=== PATIENT | female | born 1995 | race Caucasian/White ===

== ENCOUNTER 2017-01-14 13:39 | Emergency (ER) | payer OTHER ==
[~2017-01-14] VITALS: Ht 167.6 cm; Wt 68.2 kg
[2017-01-14 13:51] VITALS: BP 101/57
[2017-01-14] MEDS ORDERED: SUBO8MIS SL (13:55)
[2017-01-14] MEDS ORDERED: BUSP30TA PO (13:55)
[2017-01-14] MEDS ORDERED: QUET1TAB8 PO (13:55)
[2017-01-14] MEDS ORDERED: NICODIS TD (13:55)
[2017-01-14] MEDS ORDERED: ACETAMINOPHEN TAB 650MG DOSE (2X325MG) PO ONE (16:30)
[2017-01-14] MEDS ORDERED: IBUPROFEN 600 MG TAB PO ONE (16:30)
[2017-01-14] MEDS ORDERED: TYLE325T5 PO (16:33)
[2017-01-14] MEDS ORDERED: IBUP-1022 PO (16:33)
== END 2017-01-14 16:38 | disposition home or self-care (01) ==
LOC: M ED 13:39
DX: G43.909 Migraine, unspecified, not intractable, without status migrainosus (principal); F17.200 Nicotine dependence, unspecified, uncomplicated; Z79.899 Other long term (current) drug therapy

== ENCOUNTER → 2017-01-19 | Outpatient (CLI) | payer OTHER ==
[~2017-01-19] MED LIST: BUSP30TA PO; IBUP-1022 PO; NICODIS TD; QUET1TAB8 PO; SUBO8MIS SL; TYLE325T5 PO
[2017-01-19 12:50] LABS: BASO % 0.3 % (0.0-1.0); EOS # 0.1 10^3/uL (0.0-0.50); LYMPH # 1.3 10^3/uL (1.5-6.5); LYMPH % 41.3 % (24.0-44.0); MEAN CORPUSCULAR HEMOGLOBIN 29.7 pg (27.0-33.0); MEAN CORPUSCULAR HGB CONC 32.8 g/dl (32.0-36.5); MEAN CORPUSCULAR VOLUME 90.3 fl (80.0-96.0); MONO # 0.4 10^3/uL (0.0-0.8); MONO % 11.6 % (0.0-5.0); NEUTROPHILS # 1.3 10^3/uL (1.8-7.7); NEUTROPHILS % 43.8 % (36.0-66.0); PLATELET COUNT, AUTOMATED 157 10^3/uL (150-450); RED CELL DISTRIBUTION WIDTH 13.5 % (11.5-14.5)
[2017-01-19 13:21] LABS: ALBUMIN 3.6 GM/DL (3.2-5.2); ALBUMIN/GLOBULIN RATIO 1.29 (1.00-1.93); ALKALINE PHOSPHATASE 66 U/L (45-117); ALT/SGPT 34 U/L (12-78); ANION GAP 7 MEQ/L (8-16); AST/SGOT 25 U/L (7-37); BILIRUBIN,TOTAL 0.3 MG/DL (0.2-1.0); BLOOD UREA NITROGEN 16 MG/DL (7-18); CALCIUM LEVEL 9.2 MG/DL (8.5-10.1); CARBON DIOXIDE LEVEL 27 MEQ/L (21-32); CHLORIDE LEVEL 106 MEQ/L (98-107); CREATININE FOR GFR 0.62 MG/DL (0.55-1.02); GLOMERULAR FILTRATION RATE > 60.0 (>60); GLUCOSE, FASTING 76 MG/DL (70-105); POTASSIUM SERUM 4.4 MEQ/L (3.5-5.1); SODIUM LEVEL 140 MEQ/L (136-145); TOTAL PROTEIN 6.4 GM/DL (6.4-8.2)
== END ==
LOC: M LAB 11:50
PROVIDERS: ATTEND Nurse Practitioner Adult Health
DX: Z79.899 Other long term (current) drug therapy (principal)

== ENCOUNTER 2017-01-28 11:18 | Emergency (ER) | payer OTHER ==
[~2017-01-28] VITALS: Ht 170.2 cm; Wt 83.2 kg
[2017-01-28 13:04] VITALS: BP 97/56
== END 2017-01-28 13:06 | disposition home or self-care (01) ==
LOC: M ED 11:18
DX: S09.90XA Unspecified injury of head, initial encounter (principal); X58.XXXA Exposure to other specified factors, initial encounter; Y92.099 Unspecified place in other non-institutional residence as the place of occurrence of the external cause; Y93.9 Activity, unspecified; Y99.9 Unspecified external cause status; F60.3 Borderline personality disorder; F90.9 Attention-deficit hyperactivity disorder, unspecified type; F41.9 Anxiety disorder, unspecified; F32.9 Major depressive disorder, single episode, unspecified; Z79.899 Other long term (current) drug therapy

== ENCOUNTER → 2017-02-24 | Outpatient (REF) | payer OTHER | LOC: M SFHCWAGY 15:15 | DX: Z11.4 Encounter for screening for human immunodeficiency virus [HIV] (principal); Z11.3 Encounter for screening for infections with a predominantly sexual mode of transmission ==

== ENCOUNTER → 2017-04-09 | Outpatient (REF) | payer OTHER ==
[2017-04-09 16:12] LABS: INFLUENZA A AMPLIFICATION NEGATIVE (NEGATIVE); INFLUENZA B AMPLIFICATION NEGATIVE (NEGATIVE)
== END ==
LOC: M SFHCLERA 12:32
DX: J02.9 Acute pharyngitis, unspecified (principal); R51 Headache

== ENCOUNTER → 2017-04-11 | Outpatient (REF) | payer OTHER | LOC: M SFHCLERA 13:53 | DX: J02.9 Acute pharyngitis, unspecified (principal) ==

== ENCOUNTER → 2017-04-27 | Outpatient (REF) | payer OTHER | LOC: M SFHCLERA 19:14 | DX: L98.9 Disorder of the skin and subcutaneous tissue, unspecified (principal); L72.9 Follicular cyst of the skin and subcutaneous tissue, unspecified ==

== ENCOUNTER → 2017-04-29 | Outpatient (CLI) | payer OTHER ==
[2017-04-29 14:23] LABS: COMPLEMENT C3 88.5 MG/DL (90-180); COMPLEMENT C4 22.6 MG/DL (10-40); IMMUNOGLOBULIN G 977 MG/DL (681-1648); IMMUNOGLOBULIN M 73.9 MG/DL (40-230)
[2017-04-29 15:04] LABS: IMMUNOGLOBULIN E 16.4 IU/ML (<100)
== END ==
LOC: M LAB 12:59
DX: L50.8 Other urticaria (principal); J30.1 Allergic rhinitis due to pollen; J30.81 Allergic rhinitis due to animal (cat) (dog) hair and dander
CPT/HCPCS: 82785

== ENCOUNTER 2017-05-05 14:00 | Emergency (ER) | payer OTHER ==
[2017-05-05] MEDS: METHYLNALTREXONE BROMIDE 12 MG/0.6 ML VIAL (RELISTOR) SC (16:38)
[2017-05-05] MEDS: FLEET OIL RETENTION ENEMA PR (17:37)
[2017-05-05] MEDS: MAGNESIUM CITRATE 300 ML BTL PO (19:37)
== END 2017-05-05 19:44 | disposition home or self-care (01) ==
LOC: M ED 14:00
DX: K59.03 Drug induced constipation (principal); F41.9 Anxiety disorder, unspecified; F90.9 Attention-deficit hyperactivity disorder, unspecified type; F60.3 Borderline personality disorder; F19.10 Other psychoactive substance abuse, uncomplicated; Z79.899 Other long term (current) drug therapy
CPT/HCPCS: 74021

== ENCOUNTER → 2017-05-09 | Outpatient (REF) | payer OTHER ==
[2017-05-09 16:16] LABS: CHLAMYDIA DNA AMPLIFICATION NEGATIVE (NEGATIVE); GC DNA AMPLIFICATION NEGATIVE (NEGATIVE)
== END ==
LOC: M SFHCWAGY 13:35
DX: N89.8 Other specified noninflammatory disorders of vagina (principal); Z11.3 Encounter for screening for infections with a predominantly sexual mode of transmission

== ENCOUNTER 2017-06-01 10:10 | Emergency (ER) | payer OTHER ==
[2017-06-01] MEDS: METHYLNALTREXONE BROMIDE 12 MG/0.6 ML VIAL (RELISTOR) SC (12:45)
[2017-06-01] MEDS: FLEET OIL RETENTION ENEMA PR (12:45)
[2017-06-01] MEDS: MAGNESIUM CITRATE 300 ML BTL PO (12:53)
== END 2017-06-01 13:47 | disposition home or self-care (01) ==
LOC: M ED 10:10
DX: K59.03 Drug induced constipation (principal); F19.10 Other psychoactive substance abuse, uncomplicated; F60.3 Borderline personality disorder; F90.9 Attention-deficit hyperactivity disorder, unspecified type; J30.2 Other seasonal allergic rhinitis; Z87.891 Personal history of nicotine dependence; Z79.899 Other long term (current) drug therapy
CPT/HCPCS: 74019

== ENCOUNTER → 2017-06-17 | Outpatient (CLI) | payer OTHER ==
[2017-06-17 10:29] LABS: FREE T4 0.84 NG/DL (0.76-1.46)
== END ==
LOC: M LAB 09:16
DX: K59.00 Constipation, unspecified (principal)
CPT/HCPCS: 84443

== ENCOUNTER → 2017-06-25 | Outpatient (REF) | payer OTHER | LOC: M SFHCLERA 09:49 | DX: J02.9 Acute pharyngitis, unspecified (principal) ==

== ENCOUNTER 2017-06-30 08:34 | Day surgery (SDC) | payer OTHER ==
[2017-06-30] MEDS: NS 1,000 ML IV (09:00)
[2017-06-30] MEDS ORDERED: PROPOFOL 200 MG/20 ML VIAL As Ordered (09:09)
[2017-06-30] MEDS ORDERED: LIDOCAINE 2% INJ 100 MG/5 ML SDV (FOR ANES.) As Ordered (09:40)
== END 2017-06-30 10:30 | disposition home or self-care (01) ==
LOC: M OPP 08:34
DX: R10.84 Generalized abdominal pain (principal); K92.1 Melena; K59.00 Constipation, unspecified; K64.8 Other hemorrhoids; Z86.19 Personal history of other infectious and parasitic diseases; M54.5 Low back pain; F41.9 Anxiety disorder, unspecified; F32.9 Major depressive disorder, single episode, unspecified; F12.21 Cannabis dependence, in remission; F14.21 Cocaine dependence, in remission; F19.21 Other psychoactive substance dependence, in remission; Z79.899 Other long term (current) drug therapy
CPT/HCPCS: 45378

== ENCOUNTER 2017-07-25 12:43 | Emergency (ER) | payer OTHER ==
[2017-07-25] MEDS: METHYLNALTREXONE BROMIDE 12 MG/0.6 ML VIAL (RELISTOR) SC (14:48)
== END 2017-07-25 15:43 | disposition home or self-care (01) ==
LOC: M ED 12:43
DX: K59.03 Drug induced constipation (principal); T40.2X5A Adverse effect of other opioids, initial encounter; F41.9 Anxiety disorder, unspecified; F32.9 Major depressive disorder, single episode, unspecified; F60.3 Borderline personality disorder; F90.9 Attention-deficit hyperactivity disorder, unspecified type; J30.2 Other seasonal allergic rhinitis; F17.200 Nicotine dependence, unspecified, uncomplicated; Z79.899 Other long term (current) drug therapy; Z79.891 Long term (current) use of opiate analgesic
CPT/HCPCS: 74021

== ENCOUNTER → 2017-08-01 | Outpatient (REF) | payer OTHER | LOC: M SFHCPLAZ 11:26 | DX: B19.21 Unspecified viral hepatitis C with hepatic coma (principal); R63.4 Abnormal weight loss ==

== ENCOUNTER → 2017-08-02 | Outpatient (REF) | payer OTHER ==
[2017-08-02 13:19] LABS: BASO % 0.3 % (0.0-1.0); EOS # 0.1 10^3/uL (0.0-0.50); EOS % 3.8 % (0.0-3.0); HEMOGLOBIN 11.5 g/dl (12.0-15.5); LYMPH # 1.2 10^3/uL (1.5-6.5); LYMPH % 36.6 % (24.0-44.0); MEAN CORPUSCULAR HEMOGLOBIN 30.3 pg (27.0-33.0); MEAN CORPUSCULAR HGB CONC 32.9 g/dl (32.0-36.5); MEAN CORPUSCULAR VOLUME 92.3 fl (80.0-96.0); MONO # 0.2 10^3/uL (0.0-0.8); MONO % 7.3 % (0.0-5.0); NEUTROPHILS # 1.7 10^3/uL (1.8-7.7); PLATELET COUNT, AUTOMATED 126 10^3/uL (150-450); RED BLOOD COUNT 3.79 10^6/uL (4.00-5.40); RED CELL DISTRIBUTION WIDTH 12.7 % (11.5-14.5); WHITE BLOOD COUNT 3.2 10^3/uL (4.0-10.0)
[2017-08-02 13:46] LABS: ALBUMIN 3.8 GM/DL (3.2-5.2); ALBUMIN/GLOBULIN RATIO 1.41 (1.00-1.93); ALKALINE PHOSPHATASE 67 U/L (45-117); ALT/SGPT 24 U/L (12-78); ANION GAP 8 MEQ/L (8-16); AST/SGOT 16 U/L (7-37); BILIRUBIN,TOTAL 0.4 MG/DL (0.2-1.0); BLOOD UREA NITROGEN 7 MG/DL (7-18); CALCIUM LEVEL 8.8 MG/DL (8.5-10.1); CARBON DIOXIDE LEVEL 26 MEQ/L (21-32); CHLORIDE LEVEL 109 MEQ/L (98-107); CREATININE FOR GFR 0.81 MG/DL (0.55-1.30); FREE T4 0.84 NG/DL (0.76-1.46); GLOMERULAR FILTRATION RATE > 60.0 (>60); GLUCOSE, FASTING 85 MG/DL (70-100); SODIUM LEVEL 143 MEQ/L (136-145); TOTAL PROTEIN 6.5 GM/DL (6.4-8.2)
[2017-08-03 08:06] LABS: HEPATITIS A IgG TOTAL Negative (Negative)
[2017-08-03 09:28] LABS: HEPATITIS B SURFACE ANTIBODY POSITIVE (POSITIVE)
[2017-08-05 14:16] LABS: HEPATITIS C QUANTITATION HCV Not Detected IU/mL (.)
== END ==
LOC: M SFHCPLAZ 09:48
DX: B19.21 Unspecified viral hepatitis C with hepatic coma (principal); R63.4 Abnormal weight loss

== ENCOUNTER → 2017-08-19 | Outpatient (CLI) | payer OTHER ==
[2017-08-19 15:38] LABS: BASO % 0.9 % (0.0-1.0); EOS # 0.1 10^3/uL (0.0-0.50); EOS % 3.2 % (0.0-3.0); HEMATOCRIT 35.8 % (36.0-47.0); HEMOGLOBIN 12.2 g/dl (12.0-15.5); IMMATURE GRANULOCYTE % 0.2 % (0-3.0); LYMPH # 1.5 10^3/uL (1.5-6.5); LYMPH % 34.7 % (24.0-44.0); MEAN CORPUSCULAR HEMOGLOBIN 30.7 pg (27.0-33.0); MEAN CORPUSCULAR HGB CONC 34.1 g/dl (32.0-36.5); MEAN CORPUSCULAR VOLUME 89.9 fl (80.0-96.0); MONO # 0.4 10^3/uL (0.0-0.8); MONO % 7.9 % (0.0-5.0); NEUTROPHILS # 2.3 10^3/uL (1.8-7.7); NEUTROPHILS % 53.1 % (36.0-66.0); PLATELET COUNT, AUTOMATED 171 10^3/uL (150-450); RED BLOOD COUNT 3.98 10^6/uL (4.00-5.40); RED CELL DISTRIBUTION WIDTH 12.4 % (11.5-14.5); WHITE BLOOD COUNT 4.4 10^3/uL (4.0-10.0)
[2017-08-19 15:40] LABS: APPEARANCE, URINE CLEAR (CLEAR); BACTERIA, URINE AUTO 2+ (NEGATIVE); BILIRUBIN, URINE AUTO NEGATIVE (NEGATIVE); BLOOD, URINE BLOOD NEGATIVE (NEGATIVE); COLOR, URINE STRAW (YELLOW); GLUCOSE, URINE (UA) AUTO NEGATIVE (NEGATIVE); KETONE, URINE AUTO NEGATIVE (NEGATIVE); LEUKOCYTE ESTERASE, URINE AUTO NEGATIVE (NEGATIVE); NITRITE, URINE AUTO NEGATIVE (NEGATIVE); PROTEIN, URINE AUTO NEGATIVE (NEGATIVE); RBC, URINE AUTO 2 /HPF (0-3); SPECIFIC GRAVITY URINE AUTO 1.003 (1.002-1.035); SQUAMOUS EPITHELIAL CELL UR AU 2 /HPF (0-6); UROBILINOGEN, URINE AUTO 0.2 mg/dL (0.0-2.0); WBC, URINE AUTO 0 /HPF (0-3)
[2017-08-19 15:58] LABS: ALBUMIN 4.2 GM/DL (3.2-5.2); ALBUMIN/GLOBULIN RATIO 1.35 (1.00-1.93); ALKALINE PHOSPHATASE 72 U/L (45-117); ALT/SGPT 25 U/L (12-78); ANION GAP 7 MEQ/L (8-16); AST/SGOT 16 U/L (7-37); BILIRUBIN,TOTAL 0.4 MG/DL (0.2-1.0); BLOOD UREA NITROGEN 9 MG/DL (7-18); CALCIUM LEVEL 9.5 MG/DL (8.5-10.1); CARBON DIOXIDE LEVEL 29 MEQ/L (21-32); CHLORIDE LEVEL 105 MEQ/L (98-107); CREATININE FOR GFR 0.82 MG/DL (0.55-1.30); GLOMERULAR FILTRATION RATE > 60.0 (>60); GLUCOSE, FASTING 74 MG/DL (70-100); POTASSIUM SERUM 4.1 MEQ/L (3.5-5.1); SODIUM LEVEL 141 MEQ/L (136-145); TOTAL PROTEIN 7.3 GM/DL (6.4-8.2)
[2017-08-21 09:18] LABS: HEPATITIS A IgG TOTAL Negative (Negative)
[2017-08-22 10:22] LABS: HEPATITIS B SURFACE ANTIBODY POSITIVE (POSITIVE)
[2017-08-22 10:32] LABS: HEPATITIS B SURFACE ANTIGEN NEGATIVE (NEGATIVE)
[2017-08-22 11:12] LABS: HEPATITIS C VIRUS ABY INDEX > 11.0 INDEX (<0.8)
== END ==
LOC: M LAB 14:11
DX: Z51.81 Encounter for therapeutic drug level monitoring (principal); Z79.891 Long term (current) use of opiate analgesic; F60.3 Borderline personality disorder
CPT/HCPCS: 80053

== ENCOUNTER → 2017-09-02 | Outpatient (CLI) | payer OTHER ==
[2017-09-02 15:19] LABS: HIV 1&2 SCREEN CENTAUR NEGATIVE (NEGATIVE)
[2017-09-06 10:25] LABS: HEPATITIS C QUANTITATION HCV Not Detected IU/mL (.)
== END ==
LOC: M LAB 12:04
DX: B19.21 Unspecified viral hepatitis C with hepatic coma (principal)
CPT/HCPCS: 87522

== ENCOUNTER → 2017-09-06 | Outpatient (REF) ==
[2017-09-07 11:02] LABS: RUBELLA IgG QUALITATIVE IMMUNE (IMMUNE)
[2017-09-08 08:41] LABS: HERPES ZOSTER, VARICELLA IgG 667 index (Immune >165)
[2017-09-08 08:41] LABS: RUBEOLA IgG ANTIBODY 42.8 AU/mL (Immune >29.9)
== END ==
LOC: M LAB 14:58
DX: Z02.1 Encounter for pre-employment examination (principal)